=== PATIENT | female | born 1990 | race Caucasian/White ===

== ENCOUNTER 2020-05-22 18:16 | Outpatient (CLI) | payer OTHER | END 2020-05-22 18:17 | disposition EMS.NT | LOC: EMS 18:16 | PROVIDERS: ATTEND Surgery | DX: R07.9 Chest pain, unspecified (principal); R42 Dizziness and giddiness; R11.0 Nausea; M54.9 Dorsalgia, unspecified ==

== ENCOUNTER 2020-05-22 19:07 | Emergency (ER) | payer OTHER ==
[2020-05-22] MEDS ORDERED: MAGNESIUM HYDROXIDE 2,400 MG/30 ML UDC PO STA (19:39)
[2020-05-22] MEDS ORDERED: LIDOCAINE VISCOUS 2% 15 ML UDC MM STA (19:39)
--- NOTE | 2020-05-22 19:43 | ED Physician Documentation ---
History of Present Illness - Stated complaint Stated Complaint: CHEST PX, DIZZINESS, LIMB TINGLING - Chief complaint Chief Complaint: Cardiac - History obtained from History obtained from: Patient - History of Present Illness Timing: Prior to arrival, How many hours ago (20) Pain level max: 8 Pain level now: 2 - Additonal information Additional information: 30-year-old female brought to the emergency department for evaluation of chest pain that began approximately 20 hours ago. Ports that approximately midnight last night she developed a sharp mid chest pain that had some associated dizziness and nausea. She felt a burning sensation in her chest. The pain has come and gone throughout the day but is not exertional. She got worried enough that she called the nurse line and was told to call 911 for the possibility of a heart attack. She says it when the paramedics arrived at her house she got very anxious and upset and began to have numbness and tingling in her arms legs and face. She had no focal neuro deficits slurred speech droopy face. Patient denies possibility of . Reports that her has a vasectomy. Patient takes trazodone at night to help her sleep. She also has a thyroid disorder and is on methimazole. Reports recent thyroid labs as normal. Patient is a non-smoker. No history of hypertension or diabetes. No primary family history of sudden early cardiac . Reports her parents is alive and well and without any coronary artery disease Patient denies pleuritic chest pain. No personal history of blood clots or cancer no unilateral leg swelling, no recent travel.Patient has had no fever, no congestion recently no vomiting. Denies urinary symptom Review of Systems Constitutional: denies: Fever, Chills Cardiac: reports: Chest pain / pressure. denies: Palpitations, Pedal edema, Calf pain Respiratory: denies: Dyspnea, Cough, Hemoptysis, Wheezing GI: reports: Nausea. denies: Abdominal Pain, Abdominal Swelling, Vomiting : denies: Dysuria, Frequency, Hesitancy Skin: reports: Rash, Lesions Neurologic: reports: Other (light headed). denies: Generalized weakness, Focal weakness, Numbness, Difficulty speaking, Near syncope, Syncope, Confused, Altered mental status, Head injury, LOC PD PAST MEDICAL HISTORY - Past Medical History Past Medical History: Yes Endocrine/Autoimmune: Other Other Past Medical History: Graves Dx - Past Surgical History Past Surgical History: No - Present Medications Home Medications: Ambulatory Orders Medication Instructions Recorded Confirmed Methimazole [Tapazole] 05/22/20 traZODone [Desyrel] 05/22/20 - Allergies Allergies/Adverse Reactions: Allergies Allergy/AdvReac Type Severity Reaction Status Date / Time nitrofurantoin Allergy Unknown Verified 05/22/20 19:20 - Social History Does the pt smoke?: No Smoking Status: Never smoker Does the pt drink ETOH?: No Does the pt have substance abuse?: No - Immunizations Immunizations are current?: Yes - POLST Patient has POLST: No PD ED PE NORMAL - General General: Alert and oriented X 3, No acute distress, Well developed/nourished - HEENT HEENT: EOMI - Cardiac Cardiac: RRR, No murmur - Respiratory Respiratory: No respiratory distress - Abdomen Abdomen: Normal bowel sounds, Soft, Non tender - Back Back: No CVA TTP, No spinal TTP - Derm Derm: Normal color, Warm and dry, No rash - Neuro Neuro: Alert and oriented X 3, nature photographer 2-12 intact, No motor deficit, No sensory deficit, Normal speech Eye Opening: Spontaneous Motor: Obeys Commands Verbal: Oriented GCS Score: 15 - Psych Psych: Normal mood, Normal affect Results - Vitals Vitals: Vital Signs - 24 hr 05/22/20 05/22/20 19:16 19:20 Temperature 37.3 C Heart Rate 75 75 Respiratory 18 18 Rate Blood Pressure 136/84 H 136/84 H O2 Saturation 100 100 Oxygen O2 Source Room air - EKG (time done) 1916 Rate: Rate (enter#) (66) Rhythm: NSR [place]: Normal Intervals: Normal SD QRS: Normal Ischemia: Normal ST segments Compare to prior EKG: Old EKG unavailable Computer interpretation: Agree with computer - Labs Labs: Laboratory Tests 05/22/20 05/22/20 05/22/20 19:41 19:41 19:41 WBC 7.0 RBC 3.93 L Hgb 11.1 L Hct 33.4 L MCV 85.0 MCH 28.2 MCHC 33.2 RDW 11.9 L Plt Count 303 MPV 8.5 Neut # (Auto) 4.3 Lymph # (Auto) 1.9 [place] # (Auto) 0.6 Eos # (Auto) 0.1 Baso # (Auto) 0.0 Absolute Nucleated RBC 0.00 Nucleated RBC % 0.0 Sodium 140 Potassium 3.4 L Chloride 102 Carbon Dioxide 27 Anion Gap 11.0 BUN 12 Creatinine 1.0 Estimated GFR (MDRD) 65 L Glucose 101 H Calcium 9.3 Total Bilirubin 0.6 AST 45 H ALT 64 H Alkaline Phosphatase 59 Troponin I High Sens 3.5 Total Protein 7.0 Albumin 4.2 Globulin 2.8 Albumin/Globulin Ratio 1.5 Lipase 29 TSH Urine Color Urine Clarity Urine pH Ur Specific [place] Urine Protein Urine Glucose (UA) Urine Ketones Urine Occult Blood Urine Nitrite Urine Bilirubin Urine Urobilinogen Ur Leukocyte Esterase Urine RBC Urine WBC Ur Squamous Epith Cells Urine Bacteria Ur Microscopic Review Urine Culture Comments Urine HCG, Qual 05/22/20 05/22/20 19:41 19:50 WBC RBC Hgb Hct MCV MCH MCHC RDW Plt Count MPV Neut # (Auto) Lymph # (Auto) [place] # (Auto) Eos # (Auto) Baso # (Auto) Absolute Nucleated RBC Nucleated RBC % Sodium Potassium Chloride Carbon Dioxide Anion Gap BUN Creatinine Estimated GFR (MDRD) Glucose Calcium Total Bilirubin AST ALT Alkaline Phosphatase Troponin I High Sens Total Protein Albumin Globulin Albumin/Globulin Ratio Lipase TSH < 0.08 L Urine Color YELLOW Urine Clarity CLEAR Urine pH 7.0 Ur Specific [place] 1.010 Urine Protein NEGATIVE Urine Glucose (UA) NEGATIVE Urine Ketones NEGATIVE Urine Occult Blood NEGATIVE Urine Nitrite NEGATIVE Urine Bilirubin NEGATIVE Urine Urobilinogen 0.2 (NORMAL) Ur Leukocyte Esterase SMALL H Urine RBC 0-5 Urine WBC 11-25 H Ur Squamous Epith Cells MANY Squamous H Urine Bacteria Many H Ur Microscopic Review INDICATED Urine Culture Comments NOT INDICATED Urine HCG, Qual NEGATIVE - Rads (name of study) cxr Radiology: EMP read indepedently (no acute focal abnormality) PD MEDICAL DECISION MAKING - ED course Complexity details: reviewed results, re-evaluated patient, d/w patient, d/w family ED course: 30-year-old female brought into the emergency department for evaluation of chest pain that began approximately 20 hours ago. In the exam room she appears very well. No vital sign abnormalities - Her EKG is nonischemic. Troponin is negative. She has no cardiac risk factors her HANCOCK score is 0 - Patient is PERC and Wells criteria negative. My suspicion for a PE is low - Her chest x-ray shows no acute focal abnormality. - Patient's urine is showed many WBCs and bacteria but there are also many squamous cells. I do not feel she has a urinary tract infection. She has no hematuria, urinary urgency frequency or dysuria. Will defer antibiotics at this time. - Patient does have a history of hyperthyroidism. She had her TSH checked 2 days ago which showed an appropriately low TSH but a normalized T4 at 1.76. It seems that her thyroid is well controlled at this time and I do not feel that her chest pain is related to her thyroid condition. - Was given a GI cocktail in the emergency department though she did not feel it improved her symptoms. - At this time patient has no emergent medical findings and I feel that she is clinically is stable for discharge from the emergency department. Departure - Departure Disposition: 01 Home, Self Care Clinical Impression: Chest pain Qualifiers: Chest pain type: unspecified Qualified Code(s): R07.9 - Chest pain, unspecified Instructions: ED Chest Pain NonCardiac Comments: Your labs today look normal (with the exception of your TSH as we discussed) Your EKG is normal. Your chest x-ray is normal. You are not having a heart attack. I do not believe you are have a blood clot in your lungs. These discuss this emergency department visit with your primary care provider. If your symptoms worsen, you cannot breathe well, you have weakness in your arms or legs
[2020-05-22 19:44] LABS: BASOPHILS % (AUTO) 0.4 %; EOSINOPHILS # (AUTO) 0.1 10^3/uL (0.0-0.7); HGB - HEMOGLOBIN 11.1 g/dL (12.0-16.0); LYMPHOCYTES # (AUTO) 1.9 10^3/uL (1.5-3.5); LYMPHOCYTES % (AUTO) 26.7 %; MEAN CORPUSCULAR HEMOGLOBIN 28.2 pg (27.0-31.0); MEAN CORPUSCULAR HGB CONC 33.2 g/dL (32.0-36.0); MEAN PLATELET VOLUME 8.5 fL (7.9-10.8); MONOCYTES # (AUTO) 0.6 10^3/uL (0.0-1.0); MONOCYTES % (AUTO) 8.9 %; NEUTROPHILS # (AUTO) 4.3 10^3/uL (1.5-6.6); NEUTROPHILS % (AUTO) 61.7 %; PLT - PLATELET COUNT 303 10^3/uL (130-450); RED BLOOD COUNT 3.93 10^6/uL (4.20-5.40); RED CELL DISTRIBUTION WIDTH 11.9 % (12.0-15.0)
[2020-05-22 19:57] LABS: ALBUMIN 4.2 g/dL (3.2-5.5); ALBUMIN/GLOBULIN RATIO 1.5 (1.0-2.2); BILIRUBIN,TOTAL 0.6 mg/dL (0.2-1.0); CALCIUM 9.3 mg/dL (8.5-10.3)
[2020-05-22 20:11] LABS: BILIRUBIN,URINE NEGATIVE (NEGATIVE); GLUCOSE, URINE (UA) NEGATIVE (NEGATIVE); KETONES,URINE (UA) NEGATIVE (NEGATIVE); LEUKOCYTE ESTERASE, URINE SMALL (NEGATIVE); NITRITE,URINE NEGATIVE (NEGATIVE); OCCULT BLOOD,URINE NEGATIVE (NEGATIVE); PROTEIN,URINE NEGATIVE (NEGATIVE); UROBILINOGEN,URINE 0.2 (NORMAL) E.U./dL (NORMAL)
[2020-05-22 20:18] LABS: CLARITY,URINE CLEAR (CLEAR)
[2020-05-22 20:19] LABS: HCG UR QUAL NEGATIVE
[2020-05-22 20:30] LABS: BACTERIA,URINE Many /HPF (None Seen); RBC,URINE 0-5 /HPF (0-5); SQUAMOUS EPITHELIAL CELL,UR MANY Squamous (<= Few)
--- NOTE | 2020-05-22 20:40 | XRAY Report ---
PROCEDURE: Chest 1 View X-Ray INDICATIONS: chest pain TECHNIQUE: One view of the chest was acquired. COMPARISON: None FINDINGS: Surgical changes and devices: None. Lungs and pleura: No pleural effusions or pneumothorax. Lungs are clear. Mediastinum: Mediastinal contours appear normal. Heart size is normal. Bones and chest wall: No suspicious bony lesions. Overlying soft tissues appear unremarkable. IMPRESSION: No acute cardiopulmonary pathology. Reviewed by: Alexander Lopez MD on 05/22/2020 8:39 PM PDT Approved by: Alexander Lopez MD on 05/22/2020 8:39 PM PDT Station ID: [id number]
[2020-05-22 20:58] VITALS: BP 124/87
== END 2020-05-22 20:57 | disposition home or self-care (01) ==
LOC: ED 19:07
DX: R07.9 Chest pain, unspecified (principal); E05.00 Thyrotoxicosis with diffuse goiter without thyrotoxic crisis or storm
CPT/HCPCS: 36415; 71045; 81001; 81025; 83690; 84439; 84484; 93005; 99284; A9270; 80053; 81003; 84443; 85025; 87086